=== PATIENT | male | born 1980 | race Caucasian/White ===

== ENCOUNTER 2021-08-10 17:16 | Emergency (ER) | payer SELFPAY ==
[2021-08-10] MEDS ORDERED: Ketorolac Tromethamine 30 MG/ML VIAL ONE (18:00)
[2021-08-10] MEDS ORDERED: Metoclopramide HCl 10 MG/2 ML VIAL ONE (18:00)
[2021-08-10] MEDS ORDERED: diphenhydrAMINE 50 MG/ML VIAL ONE (18:00)
== END 2021-08-10 19:09 | disposition home or self-care (01) ==
LOC: CSHERS 17:16
DX: R51.9 Headache, unspecified (principal); R22.0 Localized swelling, mass and lump, head; R29.700 NIHSS score 0; F17.210 Nicotine dependence, cigarettes, uncomplicated
CPT/HCPCS: 70450; 96374; 96375; J1200; J1885; J2765